=== PATIENT | female | born 1945 | race Caucasian/White ===

== ENCOUNTER 2016-11-27 11:41 | Emergency (ER) | payer MEDICARE, OTHER | END 2016-11-27 13:44 | disposition home or self-care (01) | LOC: ER 11:41 | DX: K80.20 Calculus of gallbladder without cholecystitis without obstruction (principal); J20.9 Acute bronchitis, unspecified; I10 Essential (primary) hypertension; M06.9 Rheumatoid arthritis, unspecified; E11.9 Type 2 diabetes mellitus without complications; Z79.84 Long term (current) use of oral hypoglycemic drugs; Z79.899 Other long term (current) drug therapy | CPT/HCPCS: 36415; 87502; 96361; 96374; 96375; J1885 ==